=== PATIENT | male | born 1985 | race African-American/Black ===

== ENCOUNTER 2016-08-13 23:50 | Emergency (ER) | payer OTHER ==
[2016-08-13 23:07] LABS: INFLUENZA A SCREEN NEGATIVE (NEGATIVE); INFLUENZA B SCREEN NEGATIVE (NEGATIVE)
== END 2016-08-14 01:58 | disposition home or self-care (01) ==
LOC: ER 23:50
PROVIDERS: Specialist
DX: J32.0 Chronic maxillary sinusitis (principal); J40 Bronchitis, not specified as acute or chronic; Z87.891 Personal history of nicotine dependence
CPT/HCPCS: 71020; 87804; 99283